=== PATIENT | male | born 1955 | race Caucasian/White ===

== ENCOUNTER 2023-05-06 16:08 | Inpatient (IN) | payer MEDICARE, SELFPAY ==
[2023-05-06] VITALS (8 sets, daily range): BP systolic 128–151; BP diastolic 68–92; PULSE 81–115; RESP 15–18; TEMP 37.1–39.3; O2SAT 95–100
--- NOTE | ~2023-05-06 | CT_ITS ---
EXAMINATION: CT abdomen pelvis w con DATE: 05/06/2023 18:05 INDICATION: Abdomen pain TECHNIQUE: Computed tomography (CT) of the abdomen and pelvis was performed with 100 cc Omnipaque 350 intravenous contrast. The dose-length product was 253.59 mGy-cm. Automated exposure control and iter ative reconstruction technique were employed. COMPARISON: None. FINDINGS: Lung bases are unremarkable. No significant pleural or pericardial effusion. 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 There is bilateral hydronephrosis. Bladder wall is thickened,, and somewhat trabeculated . Prostate gland is enlarged. There is a right inguinal hernia containing nonobstructed small bowel. The liver, spleen, pancreas, adrenal glands are unremarkable. Nonobstructive bowel gas pattern. No fr ee air or free fluid. Gallbladder is present. Mild lower thoracic and lumbar spondylosis. 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 IMPRESSION: 1. Horseshoe kidney with bilateral hydroureteronephrosis. 2: Thickened trabeculated bladder wall which may be due to chronic cystitis and/or outlet obstructio n from enlarged prostate gland. 3: Right inguinal hernia containing nonobstructed small bowel. Reviewed, dictated and finalized at location A. IMPRESSION: 1. Horseshoe kidney with bilateral hydroureteronephrosis. 2: Thickened trabeculated bladder wall which may be due to chronic cystitis an d/or outlet obstruction from enlarged prostate gland. 3: Right inguinal hernia containing nonobstructed small bowel.
--- NOTE | 2023-05-06 17:06 | ED.FEVER ---
HPI - Fever General Chief Complaint: Abdominal Pain <Neftali Carreon APRN - Last Filed: 05/06/23 17:14> Stated Complaint: FEVER <Neftali Carreon APRN - Last Filed: 05/06/23 17:14> Time Seen by Provider: 05/06/23 17:10 <Neftali Carreon APRN - Last Filed: 05/06/23 17:14> Focused HPI: Janis is a 67-year-old male patient presenting to the emergency room today with complaints of generalized abdominal pain, fever, and burning with urination. Family member reports that patient has been having high fever of 102? F over the past week. Patient has decrease in appetite. Last bowel movement was today and normal for the patient. Patient is Swedish speaking only. General: Well-developed, well nourished, in no apparent distress. Head: Normocephalic, atraumatic. Cardio: Regular rate and rhythm, s1 and s2 normal, no murmur appreciated. Resp: Clear to auscultation bilaterally, no rhonchi, rales, wheezing or rubs. Abdomen: Soft, pliable, bowel sounds present in all quadrants, mild generalized tender to palpation, no organomegly, no CVAT tenderness. Patient screened in triage and initial orders placed. Additional care and disposition to be based upon diagnostic testing and treatment. <Neftali Carreon APRN - Last Filed: 05/06/23 17:14> Source: patient and family <Neftali Carreon APRN - Last Filed: 05/06/23 17:14> Mode of arrival: ambulatory <Neftali Carreon APRN - Last Filed: 05/06/23 17:14> Limitations: language barrier <Neftali Carreon APRN - Last Filed: 05/06/23 17:14> Related Data Home Medications: Home Medications Medication Instructions Recorded Confirmed No Home Medications 05/07/23 05/07/23 <Neftali Carreon APRN - Last Filed: 05/06/23 17:14> Allergies/Adverse Reactions: Allergies Allergy/AdvReac Type Severity Reaction Status Date / Time No Known Allergies Allergy Verified 05/06/23 16:16 <Neftali Carreon APRN - Last Filed: 05/06/23 17:14> Review of Systems Review of Systems: All systems as dictated in HPI <Sy Cruz PA-C - Last Filed: 05/07/23 01:06> [facility] Family History Family History: Family History (Updated 05/06/23 @ 23:41 by Diane Laws RN) Mother Cerebrovascular accident <Neftali NELSY Carreon - Last Filed: 05/06/23 17:14> Social History Social History: Social History Smoking status: Former smoker Alcohol intake: never Substance use: never Do You Feel Safe in your Home?: Yes Lack of Transportation: No Lack of Food: Never True Current Housing: I Have Housing Concerned About Future Housing: No Difficulty Paying Gas/Electric Bills: No Difficulty Paying for Meds: No Currently Unemployed: No Education: Grade School Difficulty w/ Childcare or Family Care: No Spiritual care concerns: No <Neftali NELSY Carreon - Last Filed: 05/06/23 17:14> Exam Narrative: GENERAL: Well-appearing, well-nourished, and in no acute distress. HEAD: Normocephalic, atraumatic. EYES: PERRLA and EOMI. ENT: Nares clear, no rhinorrhea or epistaxis. Mucous membranes moist. Oropharynx without tonsillar hypertrophy exudate or other lesions. NECK: Supple. No adenopathy or masses. CHEST: No respiratory distress. Clear to auscultation. No wheezes rales or rhonchi HEART: Regular rate and rhythm. No murmur heard. Normal peripheral pulses. ABDOMEN: Left flank tenderness. Otherwise nontender. soft, nondistended, normal active bowel sounds. MSK: Normal range of motion. No edema. SKIN: Warm, dry, no rash. NEURO: Alert and oriented x3. No focal deficits. PSYCH: Normal mood and affect. <Sy Cruz PA-C - Last Filed: 05/07/23 01:06> Course Vital Signs Vital signs: Vital Signs Temperature 99.9 F H 05/06/23 16:14 Pulse Rate 82 05/06/23 16:14 Respiratory Rate 16 05/06/23 16:14 Blood Pressure 144/71 H 05/06/23 16:14 Pulse Oximetry 98 05/05
[2023-05-06 17:29] LABS: Basophils Absolute Auto 0.1 K/mm3 (0.0-0.1); Basophils Percent Auto 0.4 % (0.2-1.2); Hematocrit 33.9 % (42.0-52.0); Hemoglobin 11.1 g/dL (14.0-18.0); Immature Granulocyte Percent A 0.6 % (0-0.5); Lymphocytes Absolute Auto 0.78 K/mm3 (0.9-3.2); Lymphocytes Percent Auto 4.8 % (18.3-44.2); Mean Corpuscular HGB Conc 32.7 g/dl (32-36); Mean Corpuscular Hemoglobin 30.1 pg (26-34); Mean Corpuscular Volume 91.9 fl (80-100); Mean Platelet Volume 10.3 fl (7.4-10.4); Monocytes Absolute Auto 1.4 K/mm3 (0.1-0.6); Monocytes Percent Auto 8.4 % (2.6-8.5); Neutrophils Percent Auto 85.8 % (45.5-73.1); Platelet Count Result 289 k/mm3 (150-375); Red Blood Count 3.69 M/mm3 (4.6-6.20); Red Cell Distribution Width 12.5 % (11.5-14.5); White Blood Count 16.3 K/mm3 (4.5-10.0)
[2023-05-06 17:40] LABS: Alanine Aminotransferase 23 U/L (6-50); Albumin Level 3.8 g/dL (3.5-5.1); Alkaline Phosphatase 117 U/L (38-126); Anion Gap 7 mmol/L (8-16); Aspartate Amino Transferase 30 U/L (17-59); Blood Urea Nitrogen 32 mg/dL (9-20); Carbon Dioxide 26 mmol/L (22-30); Chloride 100 mmol/L (98-107); Estimated CRCL calculation 37 ml/min; Estimated Glomerular Filt Rate 50; Glucose 125 mg/dL (65-110); Lipase 70 U/L (23-300); Potassium 3.6 mmol/L (3.4-5.0); Sodium 133 mmol/L (137-145)
[2023-05-06 18:23] LABS: Influenza A QL RT-PCR Negative (Negative); Influenza B QL RT-PCR Negative (Negative); RSV RNA, RT-PCR Negative (Negative); SARS-CoV-2 RNA PCR Negative (Negative)
[2023-05-06 19:20] LABS: Appearance Urine Turbid (Clear); Bacteria Urine 4+ /hpf; Bilirubin Urine Negative (Negative); Blood Urine 2+ (Negative); Color Urine Yellow (Yellow); Glucose Urine UA Negative (Negative); Ketones Urine Negative (Negative); Leukocyte Esterase Ur 3+ LEU/UL (Negative); Need Manual Microscopic Reviewed; Nitrate Urine Positive (Negative); Protein Urine 1+ mg/dL (Negative); RBC Urine 0-2 /hpf (0-2); Squamous Epithelial Cell Urine Occasional /hpf (Few); Urobilinogen Urine 0.2 mg/dL (<2.0); WBC Urine >100 /hpf (0-3); pH Urine 5.5 (5.0-9.0)
[2023-05-06 19:25] LABS: Add Urine Microscopic? YES
[2023-05-06] MEDS: SODIUM CHLORIDE 0.9% IV 1,000 ML 999 ML IV CONT (19:54)
[2023-05-06] MEDS: ACETAMINOPHEN 500 MG TABLET 1000 MG PO (21:06)
[2023-05-06] MEDS: SODIUM CHLORIDE 0.9% IV 1,000 ML 125 ML IV CONT (21:48)
--- NOTE | 2023-05-06 21:57 | PM.IMHP ---
H&P: HPI History of Present Illness Date/Time: 05/06/23 21:57 Chief Complaint: Denies abdominal pain fever and burning urination. This is a 67-year-old male patient who came to emergency room complaining of generalized abdominal pain fever and burning urination family member mentioned that patient had a high fever of 102? F over the past week patient also had decrease in appetite. Patient is awake alert not in acute distress. Complains of fever and chills. Denies any dizziness no lightheadedness no blurred vision no chest pains no shortness of breaths complains of abdominal pain. Denies any nausea no vomiting no diarrhea. Complains of burning urination denies any muscle and joint pains. Vital signs in the emergency room was stable. CBC showed WBC count of 16.3 hemoglobin 11.1 hematocrit 33.9 platelets count 289. After neutrophil count 14.0. CMP showed sodium 133 potassium 3.6 chloride 100 carbon dioxide 26 BUN 32 creatinine 1.40. Glucose 125. Bilirubin 2.0. Calcium 9.0. AST ALT alkaline phosphatase total protein albumin normal lipase normal. Urinalysis showed pyuria and bacteriuria. Influenza RSV and COVID were negative. 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 Thickened trabeculated bladder wall which may be due to chronic cystitis and/or outlet obstruction from enlarged prostrate gland. Right inguinal hernia containing non obstructed small bowel. Patient was given IV ceftriaxone and IV fluids in the emergency room. Review of Systems Review of Systems: A 12 point review of system is done and is only positive what is dictated in the history of present illness. Meds Home Medications and Allergies Allergies Allergy/AdvReac Type Severity Reaction Status Date / Time No Known Allergies Allergy Verified 05/06/23 16:16 Vital Signs Vital Signs - 24 hr 05/06/23 16:14 05/06/23 19:07 05/06/23 20:30 Temperature 99.9 F H Pulse Rate 82 115 H 97 Respiratory Rate 16 18 15 Blood Pressure 144/71 H 151/87 H 142/92 H Pulse Oximetry 98 100 100 05/06/23 21:48 Temperature Pulse Rate 98 Respiratory Rate 16 Blood Pressure 128/68 Pulse Oximetry 100 Exam Const: Other: Awake alert not in acute distress HENMT: Other: Normocephalic atraumatic. Neck: Other: Supple no thyromegaly. Resp: Other: Clear to auscultation bilaterally. Cardio: Other: S1-S2 regular no murmur heard. GI: Other: Left CVA tenderness. Good bowel sounds. Extrem: Other: No pedal edema. H&P: Results Labs Labs: Short CBC 05/06/23 Range/Units 17:20 WBC 16.3 H (4.5-10.0) K/mm3 Hgb 11.1 L (14.0-18.0) g/dL Hct 33.9 L (42.0-52.0) % Plt Count 289 (150-375) k/mm3 BMP 05/06/23 17:20 Sodium 133 L Potassium 3.6 Chloride 100 Carbon Dioxide 26 BUN 32 H Creatinine 1.40 H Glucose 125 H Calcium 9.0 Liver Function 05/06/23 Range/Units 17:20 Total Bilirubin 2.0 H (0.2-1.3) mg/dL AST 30 (17-59) U/L ALT 23 (6-50) U/L Alkaline Phosphatase 117 (38-126) U/L Albumin 3.8 (3.5-5.1) g/dL Urine 05/06/23 Range/Units 18:44 Urine Color Yellow (Yellow) Urine Appearance Turbid H (Clear) Urine pH 5.5 (5.0-9.0) Ur Specific [place] 1.010 (1.001-1.035) Urine Protein 1+ H (Negative) mg/dL Urine Glucose (UA) Negative (Negative) mg/dL Assessment and Plan Assessment and plan (1) Urinary tract infection: Code(s): N39.0 - Urinary tract infection, site not specified Status: Acute Assessment and Plan: Urinary tract infection. Follow cultures. Continue ceftriaxone 2 g IV Q 24 hours. Sepsis. Continue IV antibiotics. Patient was given IV fluids in the emergency room.
--- NOTE | 2023-05-06 23:20 | ADMGEN ---
This patient, MICHELLE NIETO, was admitted to Medical Room 347-. Patient/family oriented to hospital policies and general routines including ID bracelet, bed and alarms, visiting hours, pain management, procedures, bathroom and other care routines, personal items, smoking policy, room service/diet, and visiting hours. Information on how to activate the Rapid Response Team has been discussed. Patient/Family are encouraged to report perceived risks to care and to ask questions if they do not understand what they are told or what they should do.
[2023-05-07] VITALS (8 sets, daily range): BP systolic 139–152; BP diastolic 69–75; PULSE 80–84; RESP 18–20; TEMP 36.5–38.3; O2SAT 95–98
[2023-05-07] MEDS: ACETAMINOPHEN 325 MG TABLET 650 MG PO ×3 (05:17→23:29)
[2023-05-07] MEDS: SODIUM CHLORIDE 0.9% IV 1,000 ML 125 ML IV CONT ×3 (08:30→23:29)
[2023-05-07] MEDS: cefTRIAXone 2 GM/NS 100 ML 2 GM/100 ML BAG IVPB (08:30)
[2023-05-07] MEDS: ENOXAPARIN 40 MG/0.4 ML SYRINGE SUB-Q (08:30)
--- NOTE | 2023-05-07 15:19 | WPDURCON ---
Assessment and Plan Assessment and plan (1) Pyelonephritis: Code(s): N12 - Tubulo-interstitial nephritis, not specified as acute or chronic Status: Acute Assessment and Plan: Continue empiric antibiotics while awaiting urine culture. Monitor fever curve and white blood cell count (2) Bilateral hydronephrosis: Code(s): N13.30 - Unspecified hydronephrosis Status: Acute Assessment and Plan: Bilateral hydroureteronephrosis noted on imaging likely secondary to chronic outlet obstruction. Will plan for Leon catheter placement for maximal urinary drainage. Would recommend repeat renal ultrasound in 2-3 days to assess for resolution of hydronephrosis. (3) BPH with urinary obstruction: Code(s): N40.1 - Benign prostatic hyperplasia with lower urinary tract symptoms; N13.8 - Other obstructive and reflux uropathy Status: Acute Assessment and Plan: Bladder wall thickening noted on CT likely due to chronic outlet obstruction. Plan for Leon catheter placement as above. Will begin tamsulosin and finasteride. Consider voiding trial prior to discharge if improvement/resolution of hydro (4) Horseshoe kidney: Code(s): Q63.1 - Lobulated, fused and horseshoe kidney Status: Acute Assessment and Plan: Noted on CT Urology Consult Note HPI Date Seen: 05/07/23 Requesting Physician: Sathish Noland MD Primary Care Provider: [facility] [employer] Consult Narrative Narrative: Janis Byrd is a 67 year old male with no prior urologic history who is being seen in consultation for pyelonephritis. He presented to the ER on 05/06/2023 with complaints of dysuria and high fever (T-max at home was 102?). On arrival, his WBC was elevated at 16.3 and creatinine was 1.4. UA grossly abnormal with leukocytes, nitrites, blood. CT of the abdomen/pelvis was completed which showed horseshoe kidney with bilateral hydroureteronephrosis as well as thickened trabeculated bladder wall. He had a high fever up to 102.8?. At the time of my evaluation, he is resting comfortably. He complains of fever and chills but denies nausea or vomiting. He reports 2-3 days of dysuria prior to presentation. Denies hematuria. he reports for the past 3 weeks he has had decreased urine output and difficulty emptying his bladder. He denies any prior urologic issues. Of note, the patient speaks Turkmen only. Unable to use video interpreting services due to issues with language dialect. Patient has a family friend present at the bedside who provides interpretation. Review of Systems Review of Systems: All systems reviewed & are unremarkable except as noted in HPI and below PMFSH Family History Family History (Updated 05/06/23 @ 23:41 by Diane Laws RN) Mother Cerebrovascular accident Social History Social History Smoking status: Former smoker Alcohol intake: never Substance use: never Do You Feel Safe in your Home?: Yes Lack of Transportation: No Lack of Food: Never True Current Housing: I Have Housing Concerned About Future Housing: No Difficulty Paying Gas/Electric Bills: No Difficulty Paying for Meds: No Currently Unemployed: No Education: Grade School Difficulty w/ Childcare or Family Care: No Spiritual care concerns: No Meds Home Medications and Allergies Home Medications Medication Instructions Recorded Confirmed Type No Home Medications 05/07/23 05/07/23 History Allergies Allergy/AdvReac Type Severity Reaction Status Date / Time No Known Allergies Allergy Verified 05/06/23 16:16 Vital Signs Vital Signs - 24 hr 05/06/23 16:14 05/06/23 19:07 05/06/23 20:30 Temperature 99.9 F H Pulse Rate 82 115 H 97 Respiratory Rate 16 18 15 Blood Pressure 144/71 H 151/87 H 142/92 H Pulse Oximetry 98 100 100 Oxygen Delivery 05/06/23 21:48 05/06/23 22:02 05/06/23 21:00 Temperature 102.8 F H Pulse Rate 98 88 Respi
[2023-05-07] MEDS: FINASTERIDE 5 MG TABLET PO (18:00)
[2023-05-07] MEDS: TAMSULOSIN HCL 0.4 MG CAPSULE PO (18:00)
--- NOTE | 2023-05-07 18:34 | PM.IMPN ---
Progress Note: A&P Assessment and Plan (1) BPH with urinary obstruction: Code(s): N40.1 - Benign prostatic hyperplasia with lower urinary tract symptoms; N13.8 - Other obstructive and reflux uropathy Status: Acute (2) Bladder wall thickening: Code(s): N32.89 - Other specified disorders of bladder Status: Acute (3) Horseshoe kidney: Code(s): Q63.1 - Lobulated, fused and horseshoe kidney Status: Acute (4) Bilateral hydronephrosis: Code(s): N13.30 - Unspecified hydronephrosis Status: Acute (5) Pyelonephritis: Code(s): N12 - Tubulo-interstitial nephritis, not specified as acute or chronic Status: Acute (6) Urinary tract infection: Code(s): N39.0 - Urinary tract infection, site not specified Status: Acute Plan Admit patient to medical unit under full inpatient status Urinalysis was done which shows finding consistent with UTI Follow-up on urine and blood cultures Patient started on IV Rocephin in the ER which we will continue on the floor Patient was given 1 L of IV hydration in the ER Started patient on IV hydration at 125 cc/hour on the floor which I will cut down to 75 cc/hr Strict input and output monitoring Urology evaluation ordered due to his horseshoe kidneys and pyelonephritis PT/OT evaluation to be ordered as needed once patient is more stable ? Patient seen and examined at bedside during my morning rounds ? Collaborated with patient's nurse at the bedside in detail and addressed all concerns ? Labs, electrolytes, radiology, investigations and test results reviewed ? Consult/Nursing/Ancilliary notes on the chart reviewed and appreciated ? Spoke with patient/family at the bedside and answered all the questions that they had Repeat labs in a.m. Electrolyte replacement as per protocol. Patient will be monitored very closely on the floor. Further recommendations as per the hospital course. Time Spent With Patient Time with patient: 15 - 25 minutes Subjective Date/time seen: 05/07/23 18:34 Interval history: Patient seen and evaluated bedside. Complains of mild to moderate bilateral flank pains with the burning micturition. He has horseshoe kidneys hence Urology evaluation ordered. Review of Systems Review of Systems: 14 systems were reviewed with pertinent positives and negatives per HPI. Except as documented in the HPI/progress notes, all other systems were reviewed and are negative. All systems reviewed & are unremarkable except as noted in HPI and below Exam Narrative: PHYSICAL EXAMINATION: Vital signs: Please see the chart General physical exam: Pleasant and cooperative with exam, lying in bed, complains of bilateral flank pains Head/eyes: Atraumatic, EOMI, PERRLA ENT: Moist mucous membranes, nasal passages clear Neck: Supple, full range of motion, trachea midline CVS: S1 + S2, regular rate and rhythm, no murmurs Respiratory: Bilaterally fair air entry in both lung powers, mild B/L crackles, symmetric chest expansion, no distress Abdomen: Soft, non-tender, bowel sounds +ve, no organomegaly Urology: ++ bilateral CVA tenderness, no suprapubic tenderness Extremities: No clubbing, no cyanosis, no edema, no calf tenderness Musculoskeletal: Moves all, adequate range of motion, no muscle spasms Skin: Warm, dry, no jaundice, no cyanosis Neurological: Awake, alert, oriented x 3, cranial nerves II-XII intact, no focal neurological deficits Psychiatric: Normal mood, non suicidal Objective Data Vital Signs Vital Signs: Vital Signs - 24 hr 05/06/23 19:07 05/06/23 20:30 05/06/23 21:48 Temperature Pulse Rate 115 H 97 98 Respiratory Rate 18 15 16 Blood Pressure 151/87 H 142/92 H 128/68 Pulse Oximetry 100 100 100 Oxygen Delivery 05/06/23 22:02 05/06/23 21:00 05/06/23 23:11 Temperature 39.3 C H 37.1 C Pulse Rate 88 94 Respiratory Rate 16 15 Blood Pressure 132/70 Pulse Oximetry 98 100 Oxygen Delivery
[2023-05-08 05:25] VITALS: BP 150/76; PULSE 66; RESP 16; TEMP 36.9; O2SAT 97
[2023-05-08 06:01] LABS: Basophils Percent Auto 0.3 % (0.2-1.2); Eosinophils Percent Auto 0.3 % (0-4.4); Hemoglobin 9.5 g/dL (14.0-18.0); Immature Granulocyte Percent A 0.8 % (0-0.5); Lymphocytes Absolute Auto 0.65 K/mm3 (0.9-3.2); Lymphocytes Percent Auto 5.5 % (18.3-44.2); Mean Corpuscular HGB Conc 31.7 g/dl (32-36); Mean Corpuscular Hemoglobin 29.8 pg (26-34); Mean Platelet Volume 10.5 fl (7.4-10.4); Monocytes Absolute Auto 0.7 K/mm3 (0.1-0.6); Monocytes Percent Auto 5.9 % (2.6-8.5); Neutrophils Absolute Auto 10.3 K/mm3 (1.3-6.7); Neutrophils Percent Auto 87.2 % (45.5-73.1); Platelet Count Result 270 k/mm3 (150-375); Red Blood Count 3.19 M/mm3 (4.6-6.20); Red Cell Distribution Width 12.8 % (11.5-14.5); White Blood Count 11.8 K/mm3 (4.5-10.0)
[2023-05-08 06:16] LABS: Anion Gap 4 mmol/L (8-16); Blood Urea Nitrogen 22 mg/dL (9-20); Calcium 7.9 mg/dL (8.4-10.2); Carbon Dioxide 27 mmol/L (22-30); Chloride 111 mmol/L (98-107); Estimated CRCL calculation 51 ml/min; Estimated Glomerular Filt Rate > 60; Glucose 130 mg/dL (65-110); Magnesium 2.5 mg/dL (1.6-2.3); Phosphorus 2.8 mg/dL (2.5-4.5); Potassium 3.4 mmol/L (3.4-5.0); Sodium 142 mmol/L (137-145)
[2023-05-08] MEDS: TAMSULOSIN HCL 0.4 MG CAPSULE PO (08:47)
[2023-05-08] MEDS: FINASTERIDE 5 MG TABLET PO (08:47)
[2023-05-08] MEDS: cefTRIAXone 2 GM/NS 100 ML 2 GM/100 ML BAG IVPB (08:47)
[2023-05-08] MEDS: ENOXAPARIN 40 MG/0.4 ML SYRINGE SUB-Q (08:47)
[2023-05-08 09:24] VITALS: TEMP 37.1
--- NOTE | 2023-05-08 11:47 | WPDUROPN2 ---
Progress Note: A&P Assessment and Plan (1) BPH with urinary obstruction: Code(s): N40.1 - Benign prostatic hyperplasia with lower urinary tract symptoms; N13.8 - Other obstructive and reflux uropathy Status: Acute Assessment and Plan: Await culture results, planned renal ultrasound on Wednesday to ensure resolution of hydronephrosis although he has excellent urine output and now a normal creatinine. I would make sure he is on tamsulosin and finasteride to maximize his chances of getting off the catheter. Probably he will discharge with the Leon catheter for a week or 2 with a void trial in our office. Subjective Subjective Date/Time Seen: 05/08/23 11:47 Interval history: Looks and feels okay today. Creatinine down to 1.0. Urine is yellow in Leon. Excellent urine output , 2800 mL. I [address] the [address], his bladder is only moderately full but appears chronically obstructed with cellules. Prostate moderately enlarged but not massive. Review of Systems Review of Systems: ROS unobtainable: Yes other ( Language barrier) Exam Narrative: 59-year-old male, alert, given language barrier seems to have a good understanding of what is going on and does speak a little bit of [place] to acknowledge understanding. urine is yellow in Leon. Seems to be in good spirits today. Objective Data Vital Signs Vital Signs: Vital Signs - 24 hr 05/07/23 14:59 05/07/23 15:00 05/07/23 16:54 Temperature 38.3 C H 38.3 C H 38.0 C H Pulse Rate 83 Respiratory Rate 20 Blood Pressure 152/75 H Pulse Oximetry 98 Oxygen Delivery 05/07/23 16:00 05/07/23 19:52 05/08/23 05:25 Temperature 38.0 C H 36.5 C 36.9 C Pulse Rate 80 66 Respiratory Rate 18 16 Blood Pressure 139/75 150/76 H Pulse Oximetry 95 97 Oxygen Delivery 05/08/23 08:00 05/08/23 09:24 Temperature 37.1 C Pulse Rate Respiratory Rate Blood Pressure Pulse Oximetry Oxygen Delivery Room Air Intake/Output Intake/Output: Intake & Output 05/05/23 05/06/23 05/07/23 05/08/23 23:59 23:59 23:59 23:59 Intake Total 1100 4490.4 1120 Output Total 1300 2850 Balance 1100 3190.4 -1730 Meds/Results Medications: Active Medications Generic Name Dose Route Start Last Admin Trade Name Freq PRN Reason Stop Dose Admin Acetaminophen 650 mg 05/06/23 21:24 05/07/23 23:29 Acetaminophen 325 Mg Tablet PO 650 mg Q4H PRN Administration Mild Pain (1-3) or Fever Enoxaparin Sodium 40 mg 05/07/23 09:00 05/08/23 08:47 Enoxaparin 40 Mg/0.4 Ml Syringe SUB-Q 40 mg DAILY YU Administration Finasteride 5 mg 05/07/23 15:35 05/08/23 08:47 Finasteride 5 Mg Tablet PO 5 mg QAM YU Administration Sodium Chloride 1,000 mls @ 75 mls/hr 05/06/23 21:25 05/07/23 23:29 Normal Saline Iv IV CONT 125 mls/hr .[id number] YU Administration Ceftriaxone Sodium 2 gm in 100 mls @ 200 mls/hr 05/07/23 09:00 05/08/23 08:47 Rocephin 2 Gm/Ns 100 Ml IVPB 200 mls/hr DAILY YU Administration Ketorolac Tromethamine 30 mg 05/06/23 21:24 Ketorolac 30 Mg/Ml Vial (*Bkc) IV PUSH 05/11/23 21:23 Q6H PRN Pain Rated 4-6 Ondansetron HCl 4 mg 05/06/23 21:24 Ondansetron Inj 4 Mg/2 Ml Vial IV PUSH Q4H PRN Nausea Tamsulosin HCl 0.4 mg 05/07/23 15:35 05/08/23 08:47 Tamsulosin Hcl 0.4 Mg Capsule PO 0.4 mg QAM YU Administration Radiology Results: ITS Impressions Abdomen/Pelvis CT 05/06/23 18:07 IMPRESSION: 1. Horseshoe kidney with bilateral hydroureteronephrosis. 2: Thickened trabeculated bladder wall which may be due to chronic cystitis and/or outlet obstruction from enlarged prostate gland. 3: Right inguinal hernia containing nonobstructed small bowel. Labs Labs: Laboratory Results - last 24 hr 05/08/23 05:43 WBC 11.8 H RBC 3.19 L Hgb 9.5 L Hct 30.0 L MCV 94.0 MCH 29.8 MCHC 31.7 L RDW 12.8 Plt Count 270 MPV 10.5 H Immature Gran %
[2023-05-08] MEDS: SODIUM CHLORIDE 0.9% IV 1,000 ML 75 ML IV CONT (12:03)
[2023-05-08] MEDS: KETOROLAC 30 MG/ML VIAL (*BKC) IV PUSH (12:04)
[2023-05-08 15:10] VITALS: BP 137/77; PULSE 62; RESP 15; TEMP 37; O2SAT 98
--- NOTE | 2023-05-08 17:30 | PM.IMPN ---
Progress Note: A&P Assessment and Plan (1) BPH with urinary obstruction: Code(s): N40.1 - Benign prostatic hyperplasia with lower urinary tract symptoms; N13.8 - Other obstructive and reflux uropathy Status: Acute (2) Bladder wall thickening: Code(s): N32.89 - Other specified disorders of bladder Status: Acute (3) Horseshoe kidney: Code(s): Q63.1 - Lobulated, fused and horseshoe kidney Status: Acute (4) Bilateral hydronephrosis: Code(s): N13.30 - Unspecified hydronephrosis Status: Acute (5) Pyelonephritis: Code(s): N12 - Tubulo-interstitial nephritis, not specified as acute or chronic Status: Acute (6) Urinary tract infection: Code(s): N39.0 - Urinary tract infection, site not specified Status: Acute Plan Admit patient to medical unit under full inpatient status Urinalysis was done which shows finding consistent with UTI Follow-up on urine and blood cultures Urine culture is showing E coli with pending sensitivities Patient started on IV Rocephin in the ER which we will continue on the floor Patient was given 1 L of IV hydration in the ER Started patient on IV hydration at 125 cc/hour on the floor which I will cut down to 75 cc/hr His leukocytosis and renal functions are slowly improving Strict input and output monitoring Urology evaluation ordered due to his horseshoe kidneys and pyelonephritis Encourage ambulation on the floor DC planning home in a.m. on oral antibiotics based on urine culture sensitivities if he remains stable ? Patient seen and examined at bedside during my morning rounds ? Collaborated with patient's nurse at the bedside in detail and addressed all concerns ? Labs, electrolytes, radiology, investigations and test results reviewed ? Consult/Nursing/Ancilliary notes on the chart reviewed and appreciated ? Spoke with patient/family at the bedside and answered all the questions that they had Repeat labs in a.m. Electrolyte replacement as per protocol. Patient will be monitored very closely on the floor. Further recommendations as per the hospital course. Time Spent With Patient Time with patient: 15 - 25 minutes Subjective Date/time seen: 05/08/23 17:30 Interval history: Patient is feeling better today. Continuing with IV antibiotics. Still have bilateral flank pain which is improved. Review of Systems Review of Systems: 14 systems were reviewed with pertinent positives and negatives per HPI. Except as documented in the HPI/progress notes, all other systems were reviewed and are negative. All systems reviewed & are unremarkable except as noted in HPI and below Exam Narrative: PHYSICAL EXAMINATION: Vital signs: Please see the chart General physical exam: Pleasant and cooperative with exam, lying in bed, complains of bilateral flank pains Head/eyes: Atraumatic, EOMI, PERRLA ENT: Moist mucous membranes, nasal passages clear Neck: Supple, full range of motion, trachea midline CVS: S1 + S2, regular rate and rhythm, no murmurs Respiratory: Bilaterally fair air entry in both lung powers, mild B/L crackles, symmetric chest expansion, no distress Abdomen: Soft, non-tender, bowel sounds +ve, no organomegaly Urology: + bilateral CVA tenderness, no suprapubic tenderness Extremities: No clubbing, no cyanosis, no edema, no calf tenderness Musculoskeletal: Moves all, adequate range of motion, no muscle spasms Skin: Warm, dry, no jaundice, no cyanosis Neurological: Awake, alert, oriented x 3, cranial nerves II-XII intact, no focal neurological deficits Psychiatric: Normal mood, non suicidal Objective Data Vital Signs Vital Signs: Vital Signs - 24 hr 05/07/23 19:52 05/08/23 05:25 05/08/23 08:00 Temperature 36.5 C 36.9 C Pulse Rate 80 66 Respiratory Rate 18 16 Blood Pressure 139/75 150/76 H Pulse Oximetry 95 97 Oxygen Delivery Room Air 05/08/23 09:24 05/08/23 15:10 Temperature 37.1 C 37.0 C Pulse Rate 62
[2023-05-08 19:57] VITALS: BP 145/80; PULSE 73; RESP 18; TEMP 37.1; O2SAT 98
[2023-05-08] MEDS: ACETAMINOPHEN 325 MG TABLET 650 MG PO (21:15)
--- NOTE | 2023-05-08 21:48 | PC.NURSE ---
After further discussion with the patient, he seems to speak [place]ian and not [place]ayan.
[2023-05-09 06:03] LABS: Basophils Absolute Auto 0.1 K/mm3 (0.0-0.1); Basophils Percent Auto 0.6 % (0.2-1.2); Eosinophils Absolute Auto 0.2 K/mm3 (0-0.3); Eosinophils Percent Auto 1.6 % (0-4.4); Hematocrit 29.8 % (42.0-52.0); Hemoglobin 9.4 g/dL (14.0-18.0); Immature Granulocyte Absolute 0.07 K/mm3 (0.00-0.031); Immature Granulocyte Percent A 0.7 % (0-0.5); Lymphocytes Absolute Auto 0.53 K/mm3 (0.9-3.2); Lymphocytes Percent Auto 5.2 % (18.3-44.2); Mean Corpuscular HGB Conc 31.5 g/dl (32-36); Mean Corpuscular Hemoglobin 29.7 pg (26-34); Mean Platelet Volume 10.7 fl (7.4-10.4); Monocytes Absolute Auto 0.7 K/mm3 (0.1-0.6); Monocytes Percent Auto 6.6 % (2.6-8.5); Neutrophils Absolute Auto 8.7 K/mm3 (1.3-6.7); Neutrophils Percent Auto 85.3 % (45.5-73.1); Platelet Count Result 302 k/mm3 (150-375); Red Blood Count 3.17 M/mm3 (4.6-6.20); Red Cell Distribution Width 13.1 % (11.5-14.5); White Blood Count 10.2 K/mm3 (4.5-10.0)
[2023-05-09] MEDS: ACETAMINOPHEN 325 MG TABLET 650 MG PO ×2 (06:05→19:46)
[2023-05-09] MEDS: SODIUM CHLORIDE 0.9% IV 1,000 ML 75 ML IV CONT ×3 (06:07→19:46)
[2023-05-09 06:42] VITALS: BP 148/88; PULSE 72; RESP 18; TEMP 37.3; O2SAT 96
[2023-05-09 06:47] LABS: Anion Gap 5 mmol/L (8-16); Blood Urea Nitrogen 13 mg/dL (9-20); Carbon Dioxide 27 mmol/L (22-30); Chloride 108 mmol/L (98-107); Estimated CRCL calculation 57 ml/min; Estimated Glomerular Filt Rate > 60; Glucose 112 mg/dL (65-110); Potassium 3.2 mmol/L (3.4-5.0); Sodium 140 mmol/L (137-145)
[2023-05-09] MEDS: ENOXAPARIN 40 MG/0.4 ML SYRINGE SUB-Q (09:58)
[2023-05-09] MEDS: cefTRIAXone 2 GM/NS 100 ML 2 GM/100 ML BAG IVPB (09:58)
[2023-05-09] MEDS: POTASSIUM CHLORIDE 20 MEQ ER TABLET 40 MEQ PO ×2 (09:58→17:58)
[2023-05-09] MEDS: TAMSULOSIN HCL 0.4 MG CAPSULE PO (09:59)
[2023-05-09] MEDS: FINASTERIDE 5 MG TABLET PO (09:59)
[2023-05-09 14:00] VITALS: BP 168/88; PULSE 77; RESP 16; TEMP 36.7; O2SAT 100
--- NOTE | 2023-05-09 16:14 | PM.IMPN ---
Progress Note: A&P Assessment and Plan (1) BPH with urinary obstruction: Code(s): N40.1 - Benign prostatic hyperplasia with lower urinary tract symptoms; N13.8 - Other obstructive and reflux uropathy Status: Acute (2) Bladder wall thickening: Code(s): N32.89 - Other specified disorders of bladder Status: Acute (3) Horseshoe kidney: Code(s): Q63.1 - Lobulated, fused and horseshoe kidney Status: Acute (4) Bilateral hydronephrosis: Code(s): N13.30 - Unspecified hydronephrosis Status: Acute (5) Pyelonephritis: Code(s): N12 - Tubulo-interstitial nephritis, not specified as acute or chronic Status: Acute (6) Urinary tract infection: Code(s): N39.0 - Urinary tract infection, site not specified Status: Acute Plan Admit patient to medical unit under full inpatient status Urinalysis was done which shows finding consistent with UTI Urine culture is showing E coli which is pansensitive to all major antibiotics except cefazolin Patient started on IV Rocephin in the ER which we will continue on the floor Patient was given 1 L of IV hydration in the ER Started patient on IV hydration at 125 cc/hour on the floor which I will cut down to 75 cc/hr His leukocytosis and renal functions are slowly improving Patient's WBC count is 10.2 today which is monitored closely Strict input and output monitoring Urology evaluation ordered due to his horseshoe kidneys and pyelonephritis Encourage ambulation on the floor DC planning home in a.m. on oral antibiotics if he remains stable ? Patient seen and examined at bedside during my morning rounds ? Collaborated with patient's nurse at the bedside in detail and addressed all concerns ? Labs, electrolytes, radiology, investigations and test results reviewed ? Consult/Nursing/Ancilliary notes on the chart reviewed and appreciated ? Spoke with patient/family at the bedside and answered all the questions that they had Repeat labs in a.m. Electrolyte replacement as per protocol. Patient will be monitored very closely on the floor. Further recommendations as per the hospital course. Time Spent With Patient Time with patient: 15 - 25 minutes Subjective Date/time seen: 05/09/23 16:14 Interval history: Patient lying in bed during my morning rounds. Bilateral flank pain is improving. Encouraged patient to ambulate. Review of Systems Review of Systems: 14 systems were reviewed with pertinent positives and negatives per HPI. Except as documented in the HPI/progress notes, all other systems were reviewed and are negative. All systems reviewed & are unremarkable except as noted in HPI and below Exam Narrative: PHYSICAL EXAMINATION: Vital signs: Please see the chart General physical exam: Pleasant and cooperative with exam, lying in bed, complains of bilateral flank pains Head/eyes: Atraumatic, EOMI, PERRLA ENT: Moist mucous membranes, nasal passages clear Neck: Supple, full range of motion, trachea midline CVS: S1 + S2, regular rate and rhythm, no murmurs Respiratory: Bilaterally fair air entry in both lung powers, mild B/L crackles, symmetric chest expansion, no distress Abdomen: Soft, non-tender, bowel sounds +ve, no organomegaly Urology: + bilateral CVA tenderness, no suprapubic tenderness Extremities: No clubbing, no cyanosis, no edema, no calf tenderness Musculoskeletal: Moves all, adequate range of motion, no muscle spasms Skin: Warm, dry, no jaundice, no cyanosis Neurological: Awake, alert, oriented x 3, cranial nerves II-XII intact, no focal neurological deficits Psychiatric: Normal mood, non suicidal Objective Data Vital Signs Vital Signs: Vital Signs - 24 hr 05/08/23 19:57 05/09/23 06:42 05/09/23 09:58 Temperature 37.1 C 37.3 C Pulse Rate 73 72 Respiratory Rate 18 18 Blood Pressure 145/80 H 148/88 H Pulse Oximetry 98 96 Oxygen Delivery Room Air Intake/Output Intake/Output: Intake & Output
[2023-05-09 20:52] VITALS: BP 156/85; PULSE 73; RESP 16; TEMP 37.3; O2SAT 97
[2023-05-10 05:15] VITALS: BP 155/79; PULSE 62; RESP 16; TEMP 36.8; O2SAT 98
[2023-05-10 06:08] LABS: Anion Gap 4 mmol/L (8-16); Blood Urea Nitrogen 9 mg/dL (9-20); Calcium 8.6 mg/dL (8.4-10.2); Carbon Dioxide 30 mmol/L (22-30); Chloride 109 mmol/L (98-107); Estimated CRCL calculation 63 ml/min; Estimated Glomerular Filt Rate > 60; Glucose 94 mg/dL (65-110); Potassium 3.5 mmol/L (3.4-5.0); Sodium 143 mmol/L (137-145)
[2023-05-10 06:12] LABS: Basophils Absolute Auto 0.1 K/mm3 (0.0-0.1); Basophils Percent Auto 0.6 % (0.2-1.2); Eosinophils Absolute Auto 0.3 K/mm3 (0-0.3); Hematocrit 31.5 % (42.0-52.0); Hemoglobin 9.9 g/dL (14.0-18.0); Lymphocytes Absolute Auto 0.89 K/mm3 (0.9-3.2); Lymphocytes Percent Auto 8.9 % (18.3-44.2); Mean Corpuscular HGB Conc 31.4 g/dl (32-36); Mean Corpuscular Hemoglobin 29.9 pg (26-34); Mean Corpuscular Volume 95.2 fl (80-100); Mean Platelet Volume 10.5 fl (7.4-10.4); Monocytes Absolute Auto 0.7 K/mm3 (0.1-0.6); Monocytes Percent Auto 6.5 % (2.6-8.5); Platelet Count Result 359 k/mm3 (150-375); Red Blood Count 3.31 M/mm3 (4.6-6.20)
[2023-05-10] MEDS: SODIUM CHLORIDE 0.9% IV 1,000 ML 75 ML IV CONT (08:41)
[2023-05-10] MEDS: FINASTERIDE 5 MG TABLET PO (08:43)
[2023-05-10] MEDS: TAMSULOSIN HCL 0.4 MG CAPSULE PO (08:43)
[2023-05-10] MEDS: cefTRIAXone 2 GM/NS 100 ML 2 GM/100 ML BAG IVPB (08:44)
--- NOTE | 2023-05-10 09:24 | WPDUROPN2 ---
Progress Note: A&P Assessment and Plan (1) Pyelonephritis: Code(s): N12 - Tubulo-interstitial nephritis, not specified as acute or chronic Status: Acute Assessment and Plan: Urine culture with growth of E coli, continue antibiotics tailored to culture. Leukocytosis has resolved and he remains afebrile (2) Bilateral hydronephrosis: Code(s): N13.30 - Unspecified hydronephrosis Status: Acute Assessment and Plan: Bilateral hydroureteronephrosis noted on imaging likely secondary to chronic outlet obstruction. Leon catheter placed on 05/07/2023 for maximal urinary drainage. Will plan for repeat renal ultrasound today to assess for resolution of hydronephrosis. (3) BPH with urinary obstruction: Code(s): N40.1 - Benign prostatic hyperplasia with lower urinary tract symptoms; N13.8 - Other obstructive and reflux uropathy Status: Acute Assessment and Plan: Bladder wall thickening noted on CT likely due to chronic outlet obstruction. He has been started on tamsulosin and finasteride which he will need to continue. Will plan for voiding trial as an outpatient in 1 week (4) Horseshoe kidney: Code(s): Q63.1 - Lobulated, fused and horseshoe kidney Status: Acute Assessment and Plan: Noted on CT Subjective Subjective Date/Time Seen: 05/10/23 09:24 Interval history: Feeling well today. Reports no concerns. WBC has normalized. Creatinine 0.8. Remains afebrile Review of Systems Review of Systems: ROS unobtainable: Yes other ( Language barrier) Exam Narrative: General: Awake, alert, comfortable, no acute distress HEENT: Normocephalic, atraumatic, sclerae anicteric Respiratory: Normal respiratory effort, no accessory muscle use Abdomen: Nondistended, soft, nontender : Leon catheter draining clear yellow urine Skin: Normal coloration, warm and dry Neurologic: No focal neuro deficits noted Psychiatric: Appropriate mood and affect, judgment and insight intact Objective Data Vital Signs Vital Signs: Vital Signs - 24 hr 05/09/23 09:58 05/09/23 14:00 05/09/23 20:00 Temperature 98.0 F Pulse Rate 77 Respiratory Rate 16 Blood Pressure 168/88 H Pulse Oximetry 100 Oxygen Delivery Room Air Room Air 05/09/23 20:52 05/10/23 05:15 05/10/23 08:44 Temperature 99.2 F 98.3 F Pulse Rate 73 62 Respiratory Rate 16 16 Blood Pressure 156/85 H 155/79 H Pulse Oximetry 97 98 Oxygen Delivery Room Air Intake/Output Intake/Output: Intake & Output 05/07/23 05/08/23 05/09/23 05/10/23 23:59 23:59 23:59 23:59 Intake Total 4490.4 4020 5021.3 1000 Output Total 1300 4700 6700 2550 Balance 3190.4 -680 -1678.7 -1550 Meds/Results Medications: Active Medications Generic Name Dose Route Start Last Admin Trade Name Freq PRN Reason Stop Dose Admin Acetaminophen 650 mg 05/06/23 21:24 05/09/23 19:46 Acetaminophen 325 Mg Tablet PO 650 mg Q4H PRN Administration Mild Pain (1-3) or Fever Enoxaparin Sodium 40 mg 05/07/23 09:00 05/10/23 09:00 Enoxaparin 40 Mg/0.4 Ml Syringe SUB-Q Not Given DAILY YU Finasteride 5 mg 05/07/23 15:35 05/10/23 08:43 Finasteride 5 Mg Tablet PO 5 mg QAM YU Administration Sodium Chloride 1,000 mls @ 75 mls/hr 05/06/23 21:25 05/10/23 08:41 Normal Saline Iv IV CONT 75 mls/hr .[id number] YU Administration Ceftriaxone Sodium 2 gm in 100 mls @ 200 mls/hr 05/07/23 09:00 05/10/23 08:44 Rocephin 2 Gm/Ns 100 Ml IVPB 200 mls/hr DAILY YU Administration Ketorolac Tromethamine 30 mg 05/06/23 21:24 05/08/23 12:04 Ketorolac 30 Mg/Ml Vial (*Bkc) IV PUSH 05/11/23 21:23 30 mg Q6H PRN Administration Pain Rated 4-6 Ondansetron HCl 4 mg 05/06/23 21:24 Ondansetron Inj 4 Mg/2 Ml Vial IV PUSH Q4H PRN Nausea Tamsulosin HCl 0.4 mg 05/07/23 15:35 05/10/23 08:43 Tamsulosin Hcl 0.4 Mg Capsule PO 0.4 mg QAM S
--- NOTE | 2023-05-10 12:23 | PM.DS ---
DS: Admitting Diagnosis Discharge Date 05/10/2023: Admitting Diagnosis (1) Urinary tract infection: ?Code(s): N39.0 - Urinary tract infection, site not specified ?Status:?Acute ?Assessment and Plan: Pyelonephritis.? Follow cultures.? Continue ceftriaxone 2 g IV Q 24 hours.? Sepsis.? Continue IV antibiotics.? Patient was given IV fluids in the emergency room. DS: Discharge Diagnosis Discharge Diagnosis (1) BPH with urinary obstruction: Code(s): N40.1 - Benign prostatic hyperplasia with lower urinary tract symptoms; N13.8 - Other obstructive and reflux uropathy Status: Acute (2) Bladder wall thickening: Code(s): N32.89 - Other specified disorders of bladder Status: Acute (3) Horseshoe kidney: Code(s): Q63.1 - Lobulated, fused and horseshoe kidney Status: Acute (4) Bilateral hydronephrosis: Code(s): N13.30 - Unspecified hydronephrosis Status: Acute (5) Pyelonephritis: Code(s): N12 - Tubulo-interstitial nephritis, not specified as acute or chronic Status: Acute (6) Urinary tract infection: Code(s): N39.0 - Urinary tract infection, site not specified Status: Acute (7) Sepsis due to gram-negative UTI: Code(s): A41.50 - Gram-negative sepsis, unspecified; N39.0 - Urinary tract infection, site not specified Status: Acute (8) CALLUM (acute kidney injury): Code(s): N17.9 - Acute kidney failure, unspecified Status: Acute DS: Summary Hospital Course Reason for hospitalization: Patient came to the ER for evaluation complaining of generalized abdominal pain, fever and burning urination. Hospital Course: H&P: HPI History of Present Illness Date/Time: 05/06/23? 21:57 Chief Complaint: Denies abdominal pain fever and burning urination. This is a 67-year-old male patient who came to emergency room complaining of generalized abdominal pain fever and burning urination family member mentioned that patient had a high fever of 102? F over the past week patient also had decrease in appetite.? Patient is awake alert not in acute distress.? Complains of fever and chills.? Denies any dizziness no lightheadedness no blurred vision no chest pains no shortness of breaths complains of abdominal pain.? Denies any nausea no vomiting no diarrhea.? Complains of burning urination denies any muscle and joint pains.? Vital signs in the emergency room was stable.? CBC showed WBC count of 16.3 hemoglobin 11.1 hematocrit 33.9 platelets count 289.? After neutrophil count 14.0.? CMP showed sodium 133 potassium 3.6 chloride 100 carbon dioxide 26 BUN 32 creatinine 1.40.? Glucose 125.? Bilirubin 2.0.? Calcium 9.0.? AST ALT alkaline phosphatase total protein albumin normal lipase normal.? Urinalysis showed pyuria and bacteriuria.? Influenza RSV and COVID were negative.? CT scan of the abdomen showed horseshoe kidney with bilateral hydro ureteral nephrosis.? Thickened trabeculated bladder wall which may be due to chronic cystitis and/or outlet obstruction from enlarged prostrate gland.? Right inguinal hernia containing non obstructed small bowel.? Patient was given IV ceftriaxone and IV fluids in the emergency room. HOSPITAL COURSE ... Date of Admission - 05/09/2023: Plan Admit patient to medical unit under full inpatient status Urinalysis was done which shows finding consistent with UTI Urine culture is showing E coli which is pansensitive to all major antibiotics except cefazolin Patient started on IV Rocephin in the ER which we will continue on the floor Patient was given 1 L of IV hydration in the ER Started patient on? IV hydration at 125 cc/hour on the floor which I will cut down to 75 cc/hr His leukocytosis and renal functions are slowly improving Patient's WBC count is 10.2 today which is monitored closely Strict input and output monitoring Urology evaluation ordered due to his horseshoe kidneys and pyelonephritis Encourage ambulation on the floor DC planning matthew
== END 2023-05-10 13:30 | disposition home or self-care (01) | DRG 872 ==
LOC: ANHED 21:29 → ANH3MED 22:56
PROVIDERS: Nurse Practitioner Family; Admitting Provider Internal Medicine Infectious Disease; Emergency Provider Physician Assistant; Visit Provider Family Medicine
DX: A41.9 Sepsis, unspecified organism (principal); N39.0 Urinary tract infection, site not specified; N13.30 Unspecified hydronephrosis; B96.20 Unspecified Escherichia coli [E. coli] as the cause of diseases classified elsewhere; Q63.1 Lobulated, fused and horseshoe kidney; Z20.822 Contact with and (suspected) exposure to COVID-19; Z87.891 Personal history of nicotine dependence
CPT/HCPCS: 36415; 74177; 80048; 80053; 83690; 83735; 84100; 85025; 87077; 87086; 87088; 87186; 87637; 96361; 96365; 96367; 99285; A9270; G0378; J0696; J1650; J1885; J7030; Q9967